=== PATIENT | female | born 1965 | race African-American/Black ===

== ENCOUNTER 2023-03-10 04:38 | Day surgery (SDC) | payer OTHER ==
[2023-03-08 10:10] VITALS: BMI 27.4
[2023-03-10 11:46] VITALS: TEMP 97.7
[2023-03-10 12:10] VITALS: PULSE 74
[2023-03-10 12:15] VITALS: BP 125/68; RESP 16
== END 2023-03-10 12:18 | disposition home or self-care (01) ==
LOC: JASU-ENDO 04:38
PROVIDERS: ATTEND Internal Medicine Gastroenterology
PROC: 0DBM8ZX Excision of Descending Colon, Via Natural or Artificial Opening Endoscopic, Diagnostic (ICD-10-PCS; 2023-03-10)
PROC: 0DBK8ZX Excision of Ascending Colon, Via Natural or Artificial Opening Endoscopic, Diagnostic (ICD-10-PCS; principal; 2023-03-10 10:45)
DX: Z12.11 Encounter for screening for malignant neoplasm of colon (principal); D12.2 Benign neoplasm of ascending colon; D12.4 Benign neoplasm of descending colon; K64.8 Other hemorrhoids; K59.89 Other specified functional intestinal disorders; I10 Essential (primary) hypertension
CPT/HCPCS: 88305-TC